=== PATIENT | male | born 1950 | race Caucasian/White ===

== ENCOUNTER 2017-03-30 13:00 | Emergency (ER) | payer OTHER ==
[2017-03-30 13:08] VITALS: BP 128/87; PULSE 77; TEMP 98.1; BMI 27.8
[2017-03-30] MEDS ORDERED: ACETAMINOPHEN 325 MG TABLET (FP) PO ONE (13:38)
[2017-03-30] MEDS ORDERED: ACETAMINOPHEN 325 MG TABLET (FP) ONE (13:39)
--- NOTE | 2017-03-30 14:21 | PDOC ---
History of Present Illness - General Chief Complaint: Pain Stated Complaint: RT KNEE PAIN Time Seen by Provider: 03/30/17 13:16 History Source: Patient Exam Limitations: No Limitations - History of Present Illness Initial Comments: 03/30/17 14:15 66 yo male with h/o HTN AVR on coumadin, here with c/o right knee pain. started one week ago. unsure of any trauma or injury. initially noted right knee stiffness. 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 no f/c minor swelling. did not take anything for pain. walkin on it with pain, using crutches. no hip or ankle pain. no prior surgery or injury to right knee. Past History - Past Medical History Allergies/Adverse Reactions: Allergies Allergy/AdvReac Type Severity Reaction Status Date / Time Penicillins Allergy Intermediate Hives Verified 03/30/17 13:04 Home Medications: Ambulatory Orders Atorvastatin Ca [Lipitor] 20 mg PO DAILY tablet 09/04/14 Furosemide [Lasix] 20 mg PO DAILY tablet 09/04/14 Warfarin Sodium 5 mg PO DAILY tablet 09/04/14 Potassium Chloride 10 meq PO DAILY capsule 01/18/15 Enalapril Maleate [Vasotec] 2.5 mg PO BID 10/31/15 Docusate Sodium [Colace -] 100 mg PO TID #90 capsule 11/03/15 Pantoprazole Sodium [Protonix -] 40 mg PO DAILY #30 tablet.ec 11/03/15 Enalapril Maleate 2.5 mg PO 2 TABS AM, 1 TAB PM tablet 02/27/16 Cholecalciferol (Vitamin D3) [Vitamin D3] 2,000 unit PO DAILY tablet 03/09/17 Cardiac Disorders: Yes HTN: Yes Hypercholesterolemia: Yes - Surgical History Cardiac Surgery: Yes (AVR - 2004) - Psycho/Social/Smoking Cessation Hx Anxiety: No Suicidal Ideation: No Smoking History: Never smoked Have you smoked in the past 12 months: No Number of Cigarettes Smoked Daily: 0 Information on smoking cessation initiated: No Hx Alcohol Use: No Drug/Substance Use Hx: No Substance Use Type: None *Physical Exam - Vital Signs Last Vital Signs Temp Pulse Resp BP Pulse Ox 98.1 F 77 18 128/87 96 03/30/17 13:00 03/30/17 13:00 03/30/17 13:00 03/30/17 13:00 03/30/17 13:00 - Physical Exam General Appearance: Yes: Nourished Neck: positive: Trachea midline Respiratory/Chest: positive: Lungs Clear, Normal Breath Sounds Cardiovascular: positive: Regular Rhythm, Regular Rate, S1, S2, Murmur, Other ( audible click) Gastrointestinal/Abdominal: positive: Normal Bowel Sounds. negative: Tender Musculoskeletal: positive: Other (right knee minor ttp along medial side. no laxity. neg varus valgus stress. FROM. ankle,/ hip NT FROM.) Integumentary: positive: Normal Color, Dry, Warm Neurologic: positive: Fully Oriented, Normal Mood/Affect Procedures - Splinting Splint Location: Right: Knee Pre-Made Type: knee immobilizer Post-Proc Neuro Vasc Exam: normal Davon Bandage: no Sling: No Complications: No Post splint xray: No Good repositioning: Yes ED Treatment Course - RADIOLOGY Radiology Studies Ordered: Category Date Time Status KNEE 3 POS-RIGHT [RAD] Stat Radiology 03/30/17 13:38 Taken - Medications Given in the ED: ED Medications Discontinued Medications Generic Name Dose Route Start Last Admin Trade Name Freq PRN Reason Stop Dose Admin Acetaminophen 650 mg 03/30/17 13:38 03/30/17 13:40 Tylenol - PO 03/30/17 13:39 650 mg ONCE ONE Administration Medical Decision Making - Medical Decision Making 03/30/17 14:17 66 yo male h/o AVR, HTN on coumadin here wtih c/o knee pain. on exam awake, alert . right knee no instability. min effusion. medical ttp. no laxity. neg varus valgus stress. no erythema no warmth. plan xray r/o fx. pain control and knee immobilizer. 03/30/17 14:21 xray negative. knee immobilizer placed. follow up referral to [facility]. *DC/Admit/Observation/Transfer Diagnosis at time of Disposition: Knee injury - Discharge Dispostion Disposition: HOME Condition at time of disposition: Stable Admit: No - Referrals Referrals: Keaton Gross MD [Staff Physician] - - Patient Instructions Printed Discharge Instructions: DI for Knee Sprain Additional Instructions: wear knee immobilizer until follow up with orthopedics. you can follow up with Orthopedics. Dr. Piña, see referral number and call to schedule. ice and elevate to reduce swelling. only bear weight as tolerated by pain levels. return you can take tylenol 650 mg every 6 hours as needed for pain.
== END 2017-03-30 14:24 | disposition home or self-care (01) ==
LOC: FER 13:00
DX: S89.91XA Unspecified injury of right lower leg, initial encounter (principal); I10 Essential (primary) hypertension; Z79.01 Long term (current) use of anticoagulants; I51.9 Heart disease, unspecified
CPT/HCPCS: 73562-TC-RT; 99283-25

== ENCOUNTER 2017-06-18 06:01 | Day surgery (SDC) | payer OTHER ==
[2017-06-12 09:29] VITALS: BMI 27.6
[2017-06-18 07:23] LABS: INR 2.11 (0.82-1.09); PROTHROMBIN TIME (PATIENT) 23.3 SEC (10.2-13.0)
[2017-06-18] MEDS ORDERED: BUPIVACAINE HCL 0.25% 125 MG/50 ML VIAL ONE (07:33)
[2017-06-18] MEDS ORDERED: EPINEPHrine 1:1,000 1 MG/1 ML - 30ML VIAL (INJECTION) ONE (07:33)
[2017-06-18] MEDS ORDERED: PROPOFOL 20 ML ONE (07:41)
[2017-06-18] MEDS ORDERED: SUCCINYLCHOLINE CHLORIDE 200 MG/10 ML VIAL ONE (07:41)
[2017-06-18] MEDS ORDERED: ePHEDrine SULFATE 50 MG/1 ML AMPULE ONE (07:43)
[2017-06-18] MEDS ORDERED: MIDAZOLAM HCL 2 MG/2 ML SINGLE DOSE VIAL ONE (07:45)
[2017-06-18] MEDS ORDERED: TRANEXAMIC ACID 1000 MG/10 ML VIAL ONE (08:10)
[2017-06-18] MEDS ORDERED: BUPIVACAINE HCL/PF 0.25% (2.5MG/ML) 10 ML VIAL IJ ONE ×2 (08:17)
[2017-06-18] MEDS ORDERED: TRANEXAMIC ACID 1000 MG/10 ML VIAL IVPB ONE (08:29)
--- NOTE | 2017-06-18 08:54 | OP ---
DATE OF OPERATION: 06/18/2017 PREOPERATIVE DIAGNOSIS: Right knee medial meniscal tear. POSTOPERATIVE DIAGNOSIS: Right knee medial meniscal tear. PROCEDURE: Right knee arthroscopy with partial meniscectomy. SURGEON: Billy Almazan MD ACADEMIC SUPPORT SPECIALIST: SWETHA Schulte ANESTHESIA: General. POSTOPERATIVE CONDITION: Stable. COMPLICATIONS: None. TOURNIQUET TIME: 21 minutes. INDICATIONS: This is a pleasant gentleman who is suffering from right knee pain. MRI demonstrated medial meniscal tear. Treatment options including nonoperative versus operative management were discussed. Operative risks were reviewed in detail including bleeding, infection, neurovascular injury, need for further surgery, postoperative pain or stiffness, progression of osteoarthritis. We reviewed medical risks such as heart attack, stroke, DVT, PE, and . We reviewed the rehabilitation protocol after surgery. I addressed all the patients questions. He voiced understanding and elected to proceed. DESCRIPTION OF PROCEDURE: The patient was brought to the operating room where general anesthesia was administered. The right lower extremity was then prepped and draped in the usual sterile fashion. A preoperative dose of antibiotics was given, and the usual time-out procedure was performed. At this point, the arthroscopic portals were marked out on the skin. They were then injected subcutaneously with 0.25% Marcaine. The limb was then exsanguinated, the tourniquet was inflated to 250 mmHg. The lateral portal was now established using an 11 blade. The arthroscope was now passed into the knee. Examination of the patellofemoral joint demonstrated some moderate fraying and thinning of the cartilage in the trochlea. Passing the arthroscope down into the notch, the lower portion of the trochlea demonstrated some full-thickness cartilage loss. The ACL was seen to be intact as well as the PCL. The arthroscope was now passed into the medial compartment. A medial portal was established under spinal needle localization. The medial compartment was seen to have some superficial fraying of the articular cartilage in both the femoral and tibial sides. There was a complex tear noted of the body and posterior horn of the medial meniscus. Utilizing a combination of meniscal biters and a shaver, this was debrided down to a stable base. The arthroscope was now passed into the lateral compartment. Here, the meniscus was visualized. No meniscal lesions were seen. There were minimal degenerative changes to the cartilage surfaces. At this point, the excess fluid was drawn from the knee. The portals were sutured using 3-0 nylon. A gram of TXA was injected into the knee see as how the patient is on Coumadin, and this would aid in coagulation afterwards. A compressive dressing was placed. The tourniquet was let down after 21 minutes. The patient was extubated and transferred to the recovery room in stable condition. BILLY ALMAZAN M.D. CYNTHIA/[id number]
[2017-06-18 09:41] VITALS: TEMP 98
[2017-06-18 10:28] VITALS: BP 117/65; PULSE 65
== END 2017-06-18 10:15 | disposition home or self-care (01) ==
LOC: FASU 06:01
PROVIDERS: ATTEND Orthopaedic Surgery Sports Medicine
PROC: 0SBC4ZZ Excision of Right Knee Joint, Percutaneous Endoscopic Approach (ICD-10-PCS; principal; 2017-06-18 08:09)
DX: S83.241A Other tear of medial meniscus, current injury, right knee, initial encounter (principal); X58.XXXA Exposure to other specified factors, initial encounter; Y93.9 Activity, unspecified; Y92.9 Unspecified place or not applicable
CPT/HCPCS: 36415; 85610; 94760

== ENCOUNTER 2017-06-25 19:43 | Emergency (ER) | payer OTHER ==
[2017-06-25 19:58] VITALS: BP 140/85; PULSE 82; TEMP 98.4; BMI 26.9
--- NOTE | 2017-06-25 20:29 | PDOC ---
History of Present Illness - General History Source: Patient Exam Limitations: No Limitations - History of Present Illness Initial Comments: 06/25/17 20:42 The patient is a 66 year old male, with significant past medical history of aortic valve replacement and HTN (on coumadin), meniscus repair on 06/18/17, who presents to the emergency room with a hematoma on the right thigh and increased swelling to his right knee 7 days post surgery. He believes that he further injured his knee after getting his foot caught on the gas pedal of the car 4 days after surgery. Since then, there has been increased swelling to the knee and thigh. He noticed a hematoma today and called his PCP, Dr. Mendoza, who told him to get an INR - which was 3.13. He notes that he made a follow up appointment with Dr. Sevilla in the office for tomorrow. PAST MEDICAL HISTORY: AVR and HTN on coumadin PAST SURGICAL HISTORY: meniscus repair on FAMILY HISTORY: no pertinent history SOCIAL HISTORY: Pt lives with family and is employed. MEDICATIONS: reviewed ALLERGIES: As per nursing notes Review of Systems General: No fevers or chills, no weakness, no weight loss HEENT: No change in vision. No sore throat, No ear pain CardioVascular: No chest pain or shortness of breath Respiratory:No cough, or wheezing. Gastrointestinal: no nausea, vomiting, diarrhea or constipation, No rectal bleeding Genitourinary: No dysuria, hematuria, or frequency Musculoskeletal: +right knee hematoma Neurologic: No headache, vertigo, dizziness or loss of consciousness Psychiatric: nor depression Skin: No rashes or easy bruising Endocrine: no increased thirst or abnormal weight change Allergic: no skin or latex allergy All other systems reviewed and normal Physical Exam GENERAL: The patient is awake, alert, and fully oriented, in no acute distress. HEAD: Normal with no signs of trauma. EYES: Pupils equal, round and reactive to light, extraocular movements intact, sclera anicteric, conjunctiva clear. RIGHT LEG AND KNEE: There is a large hematoma of the distal thigh extending across the knee and tracking distally and medially to the thigh. Mild increase in warmth, but no erythema or discharge. Associated ecchymosis primarily medially and posteriorly. Pt is able to flex knee approximately 45 degrees. Neurovascular and distal intact. NEUROLOGICAL: Normal speech, normal gait. PSYCH: Normal mood, normal affect. SKIN: Warm, Dry, normal turgor, no rashes or lesions noted. <Tripp Johnsonssica - Last Filed: 06/25/17 20:44> - General History Source: Patient Exam Limitations: No Limitations - History of Present Illness Initial Comments: 06/25/17 21:56 A portion of this note was documented by scribe services under my direction. I have reviewed the details of the note, within reason, and agree with the documentation. The case summary and management plan written by me. Assessment and plan: This is a 66-year-old male who comes in complaining of a swollen right knee. Patient is postop 1 week of a meal meniscus tear repair. Patient is on Coumadin and he overdid it on the physical activity and now has a large hematoma as result. I discussed the exam with patient's orthopedist who wants to see him in the office in the morning but otherwise telling him to rest ice elevate and no further intervention needed Patient had an INR done today that was 3.1 and he was told to stop his Coumadin dose tonight only <Vesna Ambrocio I - Last Filed: 06/25/17 21:57> - General Chief Complaint: Revisit,Wound Recheck Stated Complaint: RIGHT KNEE HEMATOMA Time Seen by Provider: 06/25/17 20:08 Past History <AlexLizbeth - Last Filed: 06/25/17 20:44> - Past Medical History Anemia: No Asthma: No Cancer: No Cardiac Disorders: Yes (Aortic Valve Replacement) CVA: No COPD: No CHF: No Dementia: No Diabetes: No GI Disorders: Yes (PUD) Disorders: No HTN: Yes Hypercholesterolemia: Yes Liver Disease: No Seizures: No Thyroid Disease: No - Surgical History Abdominal Surgery: Yes (Inguinal Hernia Repair) Appendectomy: No Cardiac Surgery: Yes ( - 2004) Cholecystectomy: No Lung Surgery: No Neurologic Surgery: No Orthopedic Surgery: No - Psycho/Social/Smoking Cessation Hx Anxiety: No Suicidal Ideation: No Smoking History: Never smoked Have you smoked in the past 12 months: No Number of Cigarettes Smoked Daily: 0 Hx Alcohol Use: No Drug/Substance Use Hx: No Substance Use Type: None Hx Substance Use Treatment: No <Vesna Ambrocio I - Last Filed: 06/25/17 21:57> - Past Medical History Allergies/Adverse Reactions: Allergies Allergy/AdvReac Type Severity Reaction Status Date / Time Penicillins Allergy Intermediate Hives Verified 06/18/17 07:15 NSAIDS (Non-Steroidal AdvReac Severe bleeding Unverified 06/18/17 07:15 Anti-Inflamma ulcer Home Medications: Ambulatory Orders Furosemide [Lasix] 20 mg PO DAILY tablet 09/04/14 Warfarin Sodium 5 mg PO DAILY tablet 09/04/14 Potassium Chloride 10 meq PO DAILY capsule 01/18/15 Cholecalciferol (Vitamin D3) [Vitamin D3] 2,000 unit PO HS tablet 03/09/17 Atorvastatin Calcium 40 mg PO HS tablet 06/10/17 Enalapril Maleate 5 mg PO BID tablet 06/10/17 *Physical Exam - Vital Signs Last Vital Signs Temp Pulse Resp BP Pulse Ox 98.4 F 82 15 140/85 95 06/25/17 19:45 06/25/17 19:45 06/25/17 19:45 06/25/17 19:45 06/25/17 19:45 <Lizbeth Johnson - Last Filed: 06/25/17 20:44> - Vital Signs Last Vital Signs Temp Pulse Resp BP Pulse Ox 98.4 F 82 15 140/85 95 06/25/17 19:45 06/25/17 19:45 06/25/17 19:45 06/25/17 19:45 06/25/17 19:45 <Vesna Ambrocio I - Last Filed: 06/25/17 21:57> *DC/Admit/Observation/Transfer - Attestations Scribe Attestion: 06/25/17 20:43 Documentation prepared by DIANNA Mclaughlin, acting as medical assistant dermatology for Vesna Ambrocio MD. <Lizbeth Johnson - Last Filed: 06/25/17 20:44> - Discharge Dispostion Admit: No <Vesna Ambrocio I - Last Filed: 06/25/17 21:57> Diagnosis at time of Disposition: Traumatic hematoma of right knee Qualifiers: Encounter type: initial encounter Qualified Code(s): S80.01XA - Contusion of right knee, initial encounter - Discharge Dispostion Disposition: HOME Condition at time of disposition: Good - Referrals Referrals: Surinder Mendoza MD [Primary Care Provider] - - Patient Instructions Additional Instructions: Do not take your dose of Coumadin tonight as per instructed by her laborer salvage. Rest, ice, elevation and limit activity as much as possible tonight. Keep your appointment with your orthopedist for the morning. Return to the emergency department immediately with ANY new, persistent or worsening symptoms. Continue any medications as previously prescribed by your physician. You should follow up with your primary doctor as soon as possible regarding today's emergency department visit. . Please make sure your doctor reviews the results of your emergency evaluation. Thank you for coming to the Emergency Department today for your care. It was a pleasure to see you today. Please note that your evaluation is INCOMPLETE until you follow-up with your doctor.
== END 2017-06-25 20:32 | disposition home or self-care (01) ==
LOC: FER 19:43
DX: S80.01XA Contusion of right knee, initial encounter (principal); E78.00 Pure hypercholesterolemia, unspecified; I10 Essential (primary) hypertension; Z95.2 Presence of prosthetic heart valve; Z79.01 Long term (current) use of anticoagulants; K27.9 Peptic ulcer, site unspecified, unspecified as acute or chronic, without hemorrhage or perforation
CPT/HCPCS: 99281-25